=== PATIENT | male | born 1955 | race Caucasian/White ===

== ENCOUNTER → 2017-01-28 | Outpatient (CLI) | payer BC ==
--- NOTE | 2017-01-28 14:39 | US ---
HISTORY: Right upper quadrant pain. Study: Right upper quadrant abdominal ultrasound Comparison: None. Technique: Multiple díaz scale and color flow Doppler images of the right upper quadrant were obtain ed. Findings: The liver is normal in echotexture and size. No focal intraparenchymal mass or intrahepatic biliary ductal dilatation can be observed. The gallbladder fails to demonstrate evidence for cholelithiasi s or layering sludge. The common bile duct is unremarkable measuring 3 mm. No pericholecystic flui d or gallbladder wall thickening can be observed. The right kidney appears normal in size without focal parenchymal mass or nephrolithiasis. The righ t kidney measurers 12.2 cm. No hydronephrosis or perirenal fluid can be observed. The pancreatic h ead and body are unremarkable. The pancreatic tail is largely obscured by overlying bowel gas. IMPRESSION: No sonographic evidence to suggest cholelithiasis or acute cholecystitis. Reported By:
== END ==
LOC: RAD 13:53
PROVIDERS: ATTEND Internal Medicine
DX: R10.84 Generalized abdominal pain (principal); R11.2 Nausea with vomiting, unspecified
CPT/HCPCS: 76705